=== PATIENT | female | born 1975 | race Hispanic/Latino ===

== ENCOUNTER 2019-12-23 01:17 | Emergency (ER) | payer SELFPAY ==
[~2019-12-23] VITALS: Ht 149.9 cm; Wt 52.6 kg
[2019-12-23] MEDS ORDERED: ACETAMINOPHEN 325 MG TAB ONE (02:23)
[2019-12-23] MEDS ORDERED: ACETAMINOPHEN 325 MG TAB PO ONE (02:30)
[2019-12-23] MEDS ORDERED: CEFTRIAXONE SOD 1 GM/NS 50 ML 50 ML IV ONE (02:30)
[2019-12-23] MEDS ORDERED: SODIUM CHLORIDE 0.9% 1000ML 1,000 ML IV ONE (02:30)
[2019-12-23] MEDS ORDERED: SODIUM CHLORIDE 0.9% 1000ML 1,000 ML ONE (02:31)
[2019-12-23] MEDS ORDERED: CEFTRIAXONE SOD 1 GM VIAL ONE (02:31)
--- NOTE | 2019-12-23 02:59 | Emergency Department Note ---
History of Present Illnes History of Present Illness Chief Complaint: COVID PUI History of Present Illness This is a 44 year old female REPORTS FEVER, CHILLS, BODY ACHES, "A LITTLE" BURNING WITH URINATION, SOB, CHEST PAIN, DEHYDRATED X6 DAYS. Historian: Patient Arrival Mode: Car Onset (how long ago): day(s) (6) Location: ALL OVER, MULTPLE COMPLAINTS Quality: SOB, FVER, BODYACHES, DYSURIA, SOB Severity: moderate Onset quality: gradual Duration (how long): day(s) (6) Progression: unchanged Chronicity: new Context: Reports recent illness Relieving factors: none Exacerbating factors: none Associated symptoms: Reports chest pain, Reports cough, Reports fever/chills, Reports shortness of breath, Reports other (DYSURIA) Treatments prior to arrival: none Past Medical/Family History Physician Review I have reviewed the patient's past medical and family history. Any updates have been documented here. Past Medical History Recent Fever: Yes Clinical Suspicion of Infectio: Yes New/Unexplained Change in Ment: No Past Medical History: Diabetes Past Surgical History: Social History Smoking Cessation: Never Smoker Counseling Performed: No Alcohol Use: Occasional Any Illegal Drug Use: No TB Exposure/Symptoms: No Physically hurt or threatened: No Family History Family history of heart diseas: No Other Last Tetanus: UTD Any Pre-Existing Lines (PICC,: No Is patient up to date on immun: Yes Last Flu: DENIES Last Pneumovax: DENIES Review of Systems Review of Systems Constitutional: Reports as per HPI EENTM: Reports no symptoms Cardiovascular: Reports no symptoms Respiratory: Reports as per HPI Gastrointestinal: Reports no symptoms Genitourinary: Reports as per HPI Musculoskeletal: Reports no symptoms Integumentary: Reports no symptoms Neurological: Reports no symptoms Psychological: Reports no symptoms Endocrine: Reports no symptoms Hematological/Lymphatic: Reports no symptoms Physical Exam Related Data Allergies: Coded Allergies: No Known Allergies (Unverified , 12/23/19) Triage Vital Signs Vital Signs Date Time Temp Pulse Resp B/P (MAP) Pulse Ox O2 Delivery O2 Flow Rate FiO2 12/23/19 02:09 102.4 112 18 122/77 97 Vital signs reviewed: Yes Physical Exam CONSTITUTIONAL Constitutional: Present well-developed, Present well-nourished HENT HENT: Present normocephalic, Present atraumatic, Present oropharynx clear/meka st, Present nose normal HENT L/R: Present left ext ear normal, Present right ext ear normal EYES Eyes: Reports PERRL, Reports conjunctivae normal NECK Neck: Present ROM normal PULMONARY Pulmonary: Present effort normal, Present breath sounds normal CARDIOVASCULAR Cardiovascular: Present regular rhythm, Present heart sounds normal, Present capillary refill normal, Present tachycardia (110) GASTROINTESTINAL Abdominal: Present soft, Present nontender, Present bowel sounds normal GENITOURINARY Genitourinary: Present exam deferred SKIN Skin: Present warm, Present dry MUSCULOSKELETAL Musculoskeletal: Present ROM normal NEUROLOGICAL Neurological: Present alert, Present oriented x 3, Present no gross motor or sensory deficits PSYCHOLOGICAL Psychological: Present mood/affect normal, Present judgement normal Results Laboratory Laboratory Laboratory Tests Test 12/23/19 03:40 12/23/19 02:21 White Blood Count 7.97 x10e3/uL (4.8-10.8) Red Blood Count 4.29 x10e6/uL (3.6-5.1) Hemoglobin 13.5 g/dL (12.0-16.0) Hematocrit 38.0 % (34.2-44.1) Mean Corpuscular Volume 88.6 fL (81-99) Mean Corpuscular Hemoglobin 31.5 pg (28-32) Mean Corpuscular Hemoglobin Concent 35.5 g/dL (31-35) Red Cell Distribution Width 11.3 % (11.7-14.4) Platelet Count 124 x10e3/uL (140-360) Neutrophils (%) (Auto) 80.6 % (38.7-80.0) Lymphocytes (%) (Auto) 13.8 % (18.0-39.1) Monocytes (%) (Auto) 4.6 % (4.4-11.3) Eosinophils (%) (Auto) 0.0 % (0.0-6.0) Basophils (%) (Auto) 0.4 % (0.0-1.0) Neutrophils # (Auto) 6.4 (2.1-6.9) Lymphocytes # (Auto) 1.1 (1.0-3.2) Monocytes # (Auto) 0.4 (0.2-0.8) Eosinophils # (Auto) 0.0 (0.0-0.4) Basophils # (Auto) 0.0 (0.0-0.1) Absolute Immature Granulocyte (auto 0.05 x10e3/uL (0-0.1) Urine Color Yellow (YELLOW) Urine Clarity Cloudy (CLEAR) Urine pH 6 (5 - 7) Urine Specific [place] >=1.030 (1.010-1.025) Urine Protein 2+ (NEGATIVE) Urine Glucose (UA) 2+ (NEGATIVE) Urine Ketones 3+ (NEGATIVE) Urine Blood Negative (NEGATIVE) Urine Nitrite Negative (NEGATIVE) Urine Bilirubin 1+ (NEGATIVE) Urine Urobilinogen 0.2 mg/dL (0.2 - 1) Urine Leukocyte Esterase Negative (NEGATIVE) Urine RBC 6-10 /HPF (0-5) Urine WBC 6-10 /HPF (0-5) Urine Epithelial Cells Few /LPF (NONE) Urine Bacteria Many /HPF (NONE) Urine Fine Granular Casts 1-5 (0) Urine Coarse Granular Casts 1-5 (0) Urine Mucus Many (RARE) Sodium Level 130 mmol/L (136-145) Potassium Level 4.2 mmol/L (3.5-5.1) Chloride Level 91 mmol/L (98-107) Carbon Dioxide Level 23 mmol/L (22-29) Anion Gap 20.2 mmol/L (8-16) Blood Urea Nitrogen 6 mg/dL (7-26) Creatinine 0.66 mg/dL (0.57-1.11) Estimat Glomerular Filtration Rate > 60 ML/MIN (60-) BUN/Creatinine Ratio 9 (6-25) Glucose Level 213 mg/dL (74-118) Lactic Acid Level 1.2 mmol/L (0.5-2.0) Calcium Level 8.8 mg/dL (8.4-10.2) Total Bilirubin 0.5 mg/dL (0.2-1.2) Aspartate Amino Transf (AST/SGOT) 75 IU/L (5-34) Alanine Aminotransferase (ALT/SGPT) 82 IU/L (0-55) Alkaline Phosphatase 110 IU/L (40-150) Total Protein 7.3 g/dL (6.5-8.1) Albumin 3.4 g/dL (3.5-5.0) Globulin 3.9 g/dL (2.3-3.5) Albumin/Globulin Ratio 0.9 (0.8-2.0) Lab results reviewed: Yes Imaging Imaging results reviewed: Yes Impressions Procedure: [id number] DX/CHEST SINGLE (NOT PORTABLE) Exam Date: 12/23/19 Exam Time: 314 REPORT STATUS: Signed Examination: Single AP view of the chest. COMPARISON: None. INDICATION: Shortness of breath and fever IMPRESSION: 1. Lines and Tubes: None 2. Lungs are grossly clear. No consolidation or effusion. 3. Cardiomediastinal silhouette is normal. Pulmonary vasculature is normal. 4. No acute bony abnormalities. Signed by: Dr. Han Malone M.D. on 12/23/2019 3:45 AM Dictated By: HAN MALONE MD 4 Transcribed By: GUSTAVO on 12/23/19344 COPY TO: LEN CARLIN MD~ Procedures 12 Lead ECG Interpretation ECG Interpretation : ECG: ECG 1 C Java Developer: Interpreted by ED physician Date: Dec 23, 2019 Time: 03:55 Rhythm: sinus rhythm Rate: normal BPM: 93 QRS axis: normal Conduction: incomplete RBBB ST segments normal: Yes T waves normal: Yes Other findings: no other findings Clinical Impression: abnormal ECG Assessment & Plan Medical Decision Making MDM PT WITH FEVER, DYSURIA, COUGH, SOB, HURTS TO COUGH AND BREATH, FEVER AND BODY ACHES CBC.CMP, LACTIC ACID, BLOOD CULTURE, URINE CULTURE, UA, COVID 19, CXR ORDERED TO EVAL FOR PNEUMONIA, ELECTROLYTE ABNORMALITY, UTI, COVID 19, SEPSIS, ROCEPHIN 1 GRAM IV ORDERED NS 1 LITER BOLUS ORDERED TYLENOL 975 MG PO ORDERED PT FOUND TO HAVE MILD UTI, NO EVIDENCE OF PNEUMONIA ON CXR, PT'S VITALS STABLE, PT DISCHARGED HOME ON OMNICEF, COVID TEST PENDING AT THIS TIME, WILL CALL PT WITH RESULTS WHEN RECEIVED Assessment & Plan Final Impression: (1) Fever (2) Viral syndrome (3) UTI (urinary tract infection) Depart Disposition: HOME, SELF-CARE Last Vital Signs Date Time Temp Pulse Resp B/P (MAP) Pulse Ox O2 Delivery O2 Flow Rate FiO2 12/23/19 02:09 102.4 112 18 122/77 97 Medications in the ED Acetaminophen 975 mg STK-MED ONCE .ROUTE ; Start 12/23/19 at 02:23; Stop 12/23/19 at 02:17; Status DC Ceftriaxone Sodium 1 gm STK-MED ONCE .ROUTE ; Start 12/23/19 at 02:31; Stop 12/23/19 at 02:25; Status DC Sodium Chloride 1,000 ml @ ud STK-MED ONCE .ROUTE ; Start 12/23/19 at 02:31; Stop 12/23/19 at 02:25; Status DC Acetaminophen 975 mg ONCE ONCE PO Last administered on 12/23/19at 02:25; Admin Dose 975 MG; Start 12/23/19 at 02:30; Stop 12/23/19 at 02:31; Status DC Sodium Chloride 1,000 ml @ 999 mls/hr Q1H1M ONCE IV Last administered on 12/23/19at 02:33; Admin Dose 999 MLS/HR; Start 12/23/19 at 02:30; Stop 12/23/19 at 03:30 Ceftriaxone Sodium 50 ml @ 100 mls/hr ONCE ONCE IV Last administered on 12/23/19at 02:33; Admin Dose 100 MLS/HR; Start 12/23/19 at 02:30; Stop 12/23/19 at 02:59 LEN CARLIN MD Dec 23, 2019 02:58
[2019-12-23 03:12] LABS: BASOPHILS % 0.4 % (0.0-1.0); HEMOGLOBIN 13.5 g/dL (12.0-16.0); LYMPHOCYTES # (AUTO) 1.1 (1.0-3.2); LYMPHOCYTES % 13.8 % (18.0-39.1); MEAN CORPUSCULAR HEMOGLOBIN 31.5 pg (28-32); MEAN CORPUSCULAR HGB CONC 35.5 g/dL (31-35); MEAN CORPUSCULAR VOLUME 88.6 fL (81-99); MONOCYTES # (AUTO) 0.4 (0.2-0.8); MONOCYTES % 4.6 % (4.4-11.3); NEUTROPHILS # (AUTO) 6.4 (2.1-6.9); NEUTROPHILS % 80.6 % (38.7-80.0); PLATELET COUNT 124 x10e3/uL (140-360); RED BLOOD COUNT 4.29 x10e6/uL (3.6-5.1); RED CELL DISTRIBUTION WIDTH 11.3 % (11.7-14.4)
[2019-12-23 03:17] LABS: BILIRUBIN,URINE 1+ (NEGATIVE); CLARITY,URINE CLOUDY (CLEAR); COLOR,URINE YELLOW (YELLOW); LEUKOCYTE ESTERASE ,URINE NEGATIVE (NEGATIVE); NITRITE,URINE NEGATIVE (NEGATIVE); PROTEIN,URINE DIPSTICK 2+ (NEGATIVE); URINE UROBILINOGEN 0.2 mg/dL (0.2 - 1)
[2019-12-23 03:18] LABS: KETONES,URINE 3+ (NEGATIVE)
[2019-12-23 03:28] LABS: ALANINE AMINOTRANSFERASE 82 IU/L (0-55); ALBUMIN 3.4 g/dL (3.5-5.0); ALBUMIN/GLOBULIN RATIO 0.9 (0.8-2.0); ALKALINE PHOSPHATASE 110 IU/L (40-150); BLOOD UREA NITROGEN 6 mg/dL (7-26); BUN/CREATININE RATIO 9 (6-25); CALCIUM 8.8 mg/dL (8.4-10.2); CHLORIDE 91 mmol/L (98-107); CREATININE, SERUM 0.66 mg/dL (0.57-1.11); EST GLOMERULAR FILTRATION RATE > 60 ML/MIN (60-); POTASSIUM 4.2 mmol/L (3.5-5.1); SODIUM 130 mmol/L (136-145)
[2019-12-23 03:45] LABS: BACTERIA,URINE MANY /HPF; EPITHELIAL CELLS,URINE FEW /LPF; MUCUS,URINE MANY (RARE)
--- NOTE | 2019-12-23 03:48 | Diagnostic Imaging Report ---
Examination: Single AP view of the chest. COMPARISON: None. INDICATION: Shortness of breath and fever IMPRESSION: 1. Lines and Tubes: None 2. Lungs are grossly clear. No consolidation or effusion. 3. Cardiomediastinal silhouette is normal. Pulmonary vasculature is normal. 4. No acute bony abnormalities. Signed by: Dr. Jericho Herring M.D. on 12/23/2019 3:45 AM
[2019-12-23 03:56] LABS: ANION GAP 20.2 mmol/L (8-16); CARBON DIOXIDE 23 mmol/L (22-29); GLUCOSE 213 mg/dL (74-118)
[2019-12-23 04:03] VITALS: BP 98/69
== END 2019-12-23 04:16 | disposition home or self-care (01) ==
LOC: ER 01:17
DX: R50.9 Fever, unspecified (principal); B34.9 Viral infection, unspecified; N39.0 Urinary tract infection, site not specified; Z11.59 Encounter for screening for other viral diseases; E11.9 Type 2 diabetes mellitus without complications
CPT/HCPCS: 36415; 71045; 80053; 81001; 83605; 85025; 87040; 87086; 87635; 93005; 99284; J0696; J7030